=== PATIENT | male | born 1955 | race Caucasian/White ===

== ENCOUNTER 2016-10-03 13:08 | Inpatient (IN) | payer MEDICAID, OTHER ==
[~2016-10-03] VITALS: Ht 182.9 cm; Wt 77.8 kg
[2016-10-03 14:00] LABS: Basophils # (auto) 0 uL; Basophils % (auto) 0.8 % (0.0-2.0); Eosinophils # (auto) 0.1 uL; Hematocrit 41.4 % (41.0-53.0); Lymphocytes # (auto) 1.1 uL; Mean Corpuscular Hemoglobin 33.9 pg (28.0-32.0); Mean Corpuscular Hgb Conc. 33.9 g/dL (32.0-36.0); Mean Platelet Volume 7.8 fL (7.4-10.4); Monocytes # (auto) 0.5 uL; Neutrophils # (auto) 2.4 uL; Neutrophils % (auto) 58.2 % (37.0-80.0); Platelet Count (auto) 125 10^3/uL (140-450); Red Cell Distribution Width 14.6 % (11.6-16.0); White Blood Cell 4.2 10^3/uL (4.4-10.8)
[2016-10-03 14:09] LABS: Albumin 3.1 g/dL (3.4-5.0); Anion Gap 8 (5-15); Aspartate Aminotransferase 89 U/L (15-37); Blood Urea Nitrogen 6 mg/dL (7-18); Calcium 8.1 mg/dL (8.5-10.1); Carbon Dioxide 27 mmol/L (21-32); Chloride 111 mmol/L (98-107); GFR African American 154 mL/min; GFR Non-African American 127 mL/min; Glucose 128 mg/dL (74-106); Magnesium 1.7 mg/dL (1.6-2.6); Potassium 3.7 mmol/L (3.5-5.1); Sodium 146 mmol/L (136-145)
[2016-10-03 14:13] LABS: Alkaline Phosphatase 111 U/L (45-117); Bilirubin, Total 1.1 mg/dL (0.2-1.0); Total Protein 6.9 g/dL (6.4-8.2)
[2016-10-03] MEDS: THIAMINE INJ 100 MG, MULTIPLE VITAMIN 10 ML, FOLIC ACID 1 MG, MAGNESIUM SULF SDV 50% 8 ... IV SCH ×10 (18:29→18:33)
[2016-10-03] MEDS ORDERED: SODIUM CHLORIDE 0.9% 1,000 ML IVB ONE (19:13)
[2016-10-03] MEDS ORDERED: ACETAMINOPHEN 500 MG TAB PO PRN (20:00)
[2016-10-03] MEDS ORDERED: LACTULOSE 20Gm/30ML SOLN PO PRN ×2 (20:00)
[2016-10-03] MEDS ORDERED: chlordiazePOXIDE HCL 25 MG CAP PO PRN (20:00)
[2016-10-03] MEDS ORDERED: LORazepam 2MG/ML-1ML VIAL IV PRN ×2 (20:00)
[2016-10-03] MEDS ORDERED: PROCHLORPERAZINE EDISYLATE 5 MG/ML 2ML VIAL IV PRN (20:00)
[2016-10-03] MEDS ORDERED: MORPHINE SULF INJ 2 MG/ML SYRINGE 1ML IV PRN ×2 (20:00)
[2016-10-03] MEDS ORDERED: HYDROcodone-ACET 5/325MG TAB PO PRN (20:00)
[2016-10-03] MEDS ORDERED: THIAMINE HCL 100 MG/ML 2ML VIAL IV ONE (20:00)
[2016-10-03] MEDS ORDERED: NITROGLYCERIN 0.4 MG SL TAB SL PRN (20:00)
[2016-10-03 20:25] LABS: INR 1.13 (0.9-1.15); Prothrombin Time 12.2 sec (9.37-12.3)
[2016-10-03 20:59] LABS: Temperature: 23.4 C (20.0-25.0)
[2016-10-03] MEDS: CLINDAMYCIN 600MG IV 50 ML IV SCH (22:10)
[2016-10-03] MEDS: SODIUM CHLORIDE 0.9% 1,000 ML IV SCH (22:10)
[2016-10-03 22:29] VITALS: BP 154/84
[2016-10-03 23:16] LABS: Urine Bilirubin Negative (Negative); Urine Blood Negative /uL (Negative); Urine Color Yellow (Yellow); Urine Glucose Normal (Normal); Urine Ketone Negative (Negative); Urine Nitrite Negative (Negative); Urine RBC <1 /hpf (0 - 3)
[2016-10-03] MEDS: chlordiazePOXIDE HCL 5 MG CAP PO SCH (23:17)
[2016-10-04] VITALS (7 sets, daily range): BP systolic 135–160; BP diastolic 72–98
[2016-10-04] MEDS: SODIUM CHLORIDE 0.9% 1,000 ML IV SCH ×3 (04:27→21:28)
[2016-10-04] MEDS: chlordiazePOXIDE HCL 5 MG CAP PO SCH ×3 (05:19→17:43)
[2016-10-04] MEDS: CLINDAMYCIN 600MG IV 50 ML IV SCH ×3 (05:19→21:28)
[2016-10-04 06:22] LABS: Cholesterol 136 mg/dL (< 200); HDL Cholesterol 34 mg/dL (40-59); LDL Cholesterol 98 mg/dL (< 100); Triglycerides 100 mg/dL (< 150)
[2016-10-04] MEDS: cefTRIAXone 1GM/50ML D5W 50 ML IV SCH (09:47)
[2016-10-04] MEDS: ASPirin 81 mg TAB PO SCH (09:48)
[2016-10-04] MEDS: THIAMINE HCL 100 MG/ML 2ML VIAL IV SCH (09:48)
[2016-10-04] MEDS: ENOXAPARIN SOD 40 MG/0.4 ML SYRINGE SC SCH (09:49)
[2016-10-05] MEDS: chlordiazePOXIDE HCL 5 MG CAP PO SCH ×3 (00:02→11:59)
[2016-10-05 05:03] VITALS: BP 150/72
[2016-10-05] MEDS: CLINDAMYCIN 600MG IV 50 ML IV SCH ×2 (06:05→14:39)
[2016-10-05 07:03] LABS: Basophils # (auto) 0 uL; Basophils % (auto) 0.7 % (0.0-2.0); Eosinophils # (auto) 0.1 uL; Eosinophils % (auto) 2.6 % (0.0-7.0); Hematocrit 41.8 % (41.0-53.0); Hemoglobin 14.3 g/dL (13.5-17.5); Lymphocytes # (auto) 0.7 uL; Lymphocytes % (auto) 22.7 % (10.0-50.0); Mean Corpuscular Hemoglobin 33.8 pg (28.0-32.0); Mean Corpuscular Hgb Conc. 34.1 g/dL (32.0-36.0); Mean Corpuscular Volume 98.9 fL (80.0-100.0); Mean Platelet Volume 8.5 fL (7.4-10.4); Monocytes # (auto) 0.5 uL; Monocytes % (auto) 15.7 % (0.0-12.0); Neutrophils # (auto) 1.8 uL; Neutrophils % (auto) 58.3 % (37.0-80.0); Platelet Count (auto) 72 10^3/uL (140-450); Red Cell Distribution Width 13.9 % (11.6-16.0); White Blood Cell 3.1 10^3/uL (4.4-10.8)
[2016-10-05 07:20] LABS: Albumin 3.1 g/dL (3.4-5.0); BUN/Creatinine Ratio 15.7; Calcium 8.5 mg/dL (8.5-10.1); Potassium 3.9 mmol/L (3.5-5.1)
[2016-10-05 07:23] LABS: Bilirubin, Total 3.4 mg/dL (0.2-1.0); Total Protein 6.1 g/dL (6.4-8.2)
[2016-10-05] MEDS: SODIUM CHLORIDE 0.9% 1,000 ML IV SCH ×2 (07:35→13:20)
[2016-10-05 07:45] VITALS: BP 126/87
[2016-10-05 09:00] VITALS: BP 126/87
[2016-10-05] MEDS: cefTRIAXone 1GM/50ML D5W 50 ML IV SCH (09:28)
[2016-10-05] MEDS: THIAMINE HCL 100 MG/ML 2ML VIAL IV SCH (09:28)
[2016-10-05] MEDS: ENOXAPARIN SOD 40 MG/0.4 ML SYRINGE SC SCH (09:29)
[2016-10-05] MEDS: ASPirin 81 mg TAB PO SCH (09:29)
[2016-10-05] MEDS ORDERED: LORazepam 2MG/ML-1ML VIAL IV PRN (09:30)
[2016-10-05 12:40] VITALS: BP 102/57
[2016-10-05 13:32] VITALS: BP 158/78
== END 2016-10-05 16:30 | disposition home or self-care (01) | DRG 775 ==
LOC: EDBD 13:08 → ER 13:11 → TELE 13:12 → TELE-WESTW 21:48
PROVIDERS: ADMIT Internal Medicine; ATTEND Family Medicine
DX: F10.10 Alcohol abuse, uncomplicated (principal); E87.0 Hyperosmolality and hypernatremia; D69.6 Thrombocytopenia, unspecified; G62.9 Polyneuropathy, unspecified; R55 Syncope and collapse; E87.1 Hypo-osmolality and hyponatremia; Y90.8 Blood alcohol level of 240 mg/100 ml or more; F17.210 Nicotine dependence, cigarettes, uncomplicated; L40.9 Psoriasis, unspecified; R29.6 Repeated falls; R73.9 Hyperglycemia, unspecified; I67.2 Cerebral atherosclerosis; K40.90 Unilateral inguinal hernia, without obstruction or gangrene, not specified as recurrent; K42.9 Umbilical hernia without obstruction or gangrene; I10 Essential (primary) hypertension; G89.4 Chronic pain syndrome; I45.10 Unspecified right bundle-branch block; F12.90 Cannabis use, unspecified, uncomplicated; E04.2 Nontoxic multinodular goiter; R26.9 Unspecified abnormalities of gait and mobility; Z82.61 Family history of arthritis; Z82.49 Family history of ischemic heart disease and other diseases of the circulatory system; Z82.0 Family history of epilepsy and other diseases of the nervous system
CPT/HCPCS: 36415; 70450; 71010; 72125; 76536; 80053; 80061; 80307; 80320; 81001; 82550; 82607; 82746; 83735; 84443; 84484; 85025; 85610; 85652; 85730; 87040; 93005; 93306; 94761; 95819; 96365; 96366; J0696; J3490